=== PATIENT | female | born 1965 | race Caucasian/White ===

== ENCOUNTER 2023-10-13 12:25 | Outpatient (REF) | payer SELFPAY ==
--- NOTE | 2023-10-13 09:10 | PAPFT_PTH ---
PATIENT: Kamila Calvin LOC: [facility]#:[id number] AGE/SX: 58/F ROOM: RE10/13/[address]: Day Soto : 1965 BED: DIS: 10/13/2023 SPEC #: [id number] RECD: 10/13/23 18:15 STATUS: KIERRAEduard RELatosha #: [id number] LAWSON: 10/13/23 09:[address]: Day Soto DEPT: [facility] Cytology RECD BY: Divina Wall ENTERED: 10/13/23 18:15 SP TYPE: PAPFT OT DR: Unknown,Unknown Tissues: 1 - CX/ENDOCX FOR PAP SMEARS Procedures: PAP THIN PREP/[facility] Screening HPV DNA PROBE Comments: [id number] (CHLAMYDIA/GC)
[2023-10-13 15:56] LABS: Abs Immature Grans 0.04 10^3/uL (0.0-0.06); Absolute Basophil Count 0.09 10^3/uL (0.0-0.2); Absolute Eosinophil Count 0.14 10^3/uL (0.0-0.7); Absolute Lymphocyte Count 3.57 10^3/uL (1.2-3.4); Absolute Monocyte Count 0.53 10^3/uL (0.1-0.8); Absolute Neutrophil Count 4.13 10^3/uL (1.2-6.7); Basophils % 1.1 %; Eosinophils % 1.6 %; HCT 48.6 % (36.0-46.0); HGB 16.1 g/dL (11.2-15.7); Immature Grans % 0.5 %; MCHC 33.1 % (32.0-36.0); MCV 94 fL (80-95); MPV 9.8 fL (8.0-11.0); Monocytes % 6.2 %; Neutrophils % 48.6 %; Platelet Count 244 10^3/uL (130-400); RBC 5.19 10^6/uL (3.93-5.22); RDW 13.2 % (11.7-14.6); RDW-SD 45.1 fL
[2023-10-13 16:14] LABS: ALT 33 U/L (14-59); AST 31 U/L (15-37); Albumin 4.2 g/dL (3.4-5.0); Alkaline Phosphatase 85 U/L (46-116); Anion Gap 9.9 mmol/L (3-11); BUN 20 mg/dL (7-18); Bilirubin, Total 0.6 mg/dL (0.2-1.0); CO2 27.1 mmol/L (21.0-32.0); CREATININE 0.8 mg/dL (0.55-1.02); Calculated LDL 127 mg/dL (<100); Chloride 105 mmol/L (98-107); Cholesterol 200 mg/dL (<200); Estimated GFR 86.42 (mL/min/1.73m2); Glucose 88 mg/dL (74-106); HDL Cholesterol 61 mg/dL (40-60); Potassium 4.3 mmol/L (3.5-5.1); Sodium 142 mmol/L (136-145); TSH (W/Ref FT4) 1.13 uIU/mL (0.36-3.74); Total Protein 7.8 g/dL (6.4-8.2); Triglyceride 61 mg/dL (<150)
[2023-10-13 16:47] LABS: Hemoglobin A1C 5.8 % (<5.7)
[2023-10-14 10:03] LABS: Hepatitis C Ab w Rflx HCV PCR Negative (Negative)
[2023-10-14 10:15] LABS: HIV-1/2 Ag & Ab Screen Negative (Negative)
[2023-10-14 15:41] LABS: Chlamydia Result Negative (Negative); GC Result Negative (Negative)
== END 2023-10-13 12:26 | disposition home or self-care (01) ==
LOC: NCHCN 12:25
PROVIDERS: Visit Provider Family Medicine
DX: Z00.00 Encounter for general adult medical examination without abnormal findings (principal); R53.83 Other fatigue; R73.09 Other abnormal glucose; E66.9 Obesity, unspecified; Z11.4 Encounter for screening for human immunodeficiency virus [HIV]; Z11.59 Encounter for screening for other viral diseases; Z11.3 Encounter for screening for infections with a predominantly sexual mode of transmission; Z12.4 Encounter for screening for malignant neoplasm of cervix; Z11.51 Encounter for screening for human papillomavirus (HPV)
CPT/HCPCS: 80053; 80061; 86803; 87389; 87491; 87591; 88142; 83036; 84443; 85025; 87624

== ENCOUNTER 2023-11-25 13:45 | Outpatient (REF) | payer BC, SELFPAY ==
--- NOTE | 2023-11-25 09:50 | SKI_PTH ---
PATIENT: Kamila Calvin LOC: [facility] U#:[id number] AGE/SX: 58/F ROOM: RE11/25/[address]: Day Soto : 1965 BED: DIS: 11/25/2023 SPEC #: [id number] RECD: 11/25/23 13:46 STATUS: MARK ANHTONY STARKS #: [id number] LAWSON: 11/25/23 09:[address]: Day Soto DEPT: Surgical Specimen RECD BY: Divina Wall Tissues: 1 - SKIN BIOPSY(SHAVE/PUNCH) Procedures: SKIN LEVEL 4 Comments: [id number]
== END 2023-11-25 13:46 | disposition home or self-care (01) ==
LOC: NCHCN 13:45
PROVIDERS: PCP Family Medicine; Visit Provider Family Medicine
DX: L82.1 Other seborrheic keratosis (principal); L98.8 Other specified disorders of the skin and subcutaneous tissue
CPT/HCPCS: 88305

== ENCOUNTER 2023-12-25 09:36 | Outpatient (REF) | payer BC, SELFPAY ==
[2023-12-25 14:36] LABS: Abs Immature Grans 0.01 10^3/uL (0.0-0.06); Absolute Basophil Count 0.08 10^3/uL (0.0-0.2); Absolute Eosinophil Count 0.21 10^3/uL (0.0-0.7); Absolute Lymphocyte Count 3.25 10^3/uL (1.2-3.4); Absolute Monocyte Count 0.54 10^3/uL (0.1-0.8); Absolute Neutrophil Count 3.94 10^3/uL (1.2-6.7); Eosinophils % 2.6 %; HCT 45.7 % (36.0-46.0); HGB 15.2 g/dL (11.2-15.7); Immature Grans % 0.1 %; Lymphocytes % 40.5 %; MCH 30.6 pg (27.0-33.0); MCHC 33.3 % (32.0-36.0); MCV 92 fL (80-95); MPV 9.7 fL (8.0-11.0); Monocytes % 6.7 %; Neutrophils % 49.1 %; Platelet Count 238 10^3/uL (130-400); RBC 4.96 10^6/uL (3.93-5.22); RDW 13.1 % (11.7-14.6); RDW-SD 44.1 fL; WBC 8.03 10^3/uL (4.4-10.8)
[2023-12-25 14:45] LABS: Anion Gap 8.4 mmol/L (3-11); BUN 18 mg/dL (7-18); CO2 28.6 mmol/L (21.0-32.0); CREATININE 0.8 mg/dL (0.55-1.02); Calcium 8.9 mg/dL (8.5-10.1); Chloride 106 mmol/L (98-107); Estimated GFR 86.42 (mL/min/1.73m2); Glucose 101 mg/dL (74-106); Potassium 4.2 mmol/L (3.5-5.1); Sodium 143 mmol/L (136-145)
== END 2023-12-25 09:37 | disposition home or self-care (01) ==
LOC: NCHCN 09:36
PROVIDERS: PCP Family Medicine; Visit Provider Family Medicine
DX: I10 Essential (primary) hypertension (principal); D75.1 Secondary polycythemia
CPT/HCPCS: 80048; 85025